=== PATIENT | male | born 1975 | race Caucasian/White ===

== ENCOUNTER 2021-06-18 05:21 | Inpatient (IN) | payer SELFPAY ==
[2021-06-18] VITALS (17 sets, daily range): BP systolic 105–147; BP diastolic 62–86
[~2021-06-18] VITALS: Ht 180.3 cm; Wt 89.5 kg
[2021-06-18] MEDS ORDERED: NITROGLYCERIN SUBLINGUAL 0.4 MG BOTTLE OF 25. SL PRN (05:30)
[2021-06-18] MEDS ORDERED: MORPHINE SULFATE 4 MG/ML INJ. IVP ONE ×2 (05:30→06:00)
[2021-06-18] MEDS ORDERED: HEPARIN for IV BOLUS 10,000 UNIT/10 ML VIAL. IV ONE (05:30)
--- NOTE | 2021-06-18 05:31 | EKG ---
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
[2021-06-18] MEDS ORDERED: ONDANSETRON PF 4 MG/2 ML VIAL. ONE (05:36)
--- NOTE | 2021-06-18 05:38 | PHYS DOC ---
General Adult EDM: Chief Complaint: CHEST PAIN HPI: HPI: Patient is a 45 year old male with history of smoking, family history of early NC (mother 50s) who presents with substernal chest pain for 3 hours. Started while getting ready for work. Has been unrelenting. Chest pressure substernal. Does not radiate. Associated with diaphoresis and shortness of breath. Never had similar pain. Prehospital EKG shows ST elevations anteriorly. Given 324 mg aspirin and 2 sublingual nitroglycerin prehospital which did not change his pain. Rates pain 10/10. Review of Systems: Review of Systems: Reports chest pain, diaphoresis, shortness of breath. Limited ROS due to acuity of medical condition Heart Score: C/O Chest Pain: Yes HEART Score for Chest Pain: HEART Score for Chest Pain Response (Comments) Value History Highly Suspicious [address] Depression 2 Age >45 - < 65 1 Risk Factors 1 or 2 Risk Factors 1 Total 6 Risk Factors: Risk Factors: DM, Current or recent (<one month) smoker, HTN, HLP, family history of CAD, obesity. Risk Scores: Score 0 - 3: 2.5% MACE over next 6 weeks - Discharge Home Score 4 - 6: 20.3% MACE over next 6 weeks - Admit for Clinical Observation Score 7 - 10: 72.7% MACE over next 6 weeks - Early Invasive Strategies Current Medications: Current Medications Medications (Trade) Dose Ordered Sig/Garrett Start Time Stop Time Status Last Admin Dose Admin Heparin Sodium (Porcine) (Heparin Sodium) 4,000 unit 1X ONCE 06/18/21 05:30 06/18/21 05:31 UNV Morphine Sulfate (Morphine Sulfate) 4 mg 1X ONCE 06/18/21 05:30 06/18/21 05:31 UNV Nitroglycerin (Nitrostat) 0.4 mg PRN Q5MIN PRN 06/18/21 05:30 UNV Physical Exam: PE: Constitutional: Diaphoretic and apparent distress. Clutching chest (positive Lima sign) HENT: Normocephalic, atraumatic, Eyes: PERRLA, EOMI, conjunctiva normal, no discharge. [] Neck: Normal range of motion, no tenderness, supple, no stridor. [] Cardiovascular:Heart rate regular rhythm, no murmur [] Lungs & Thorax: Bilateral breath sounds clear to auscultation [] Abdomen: Nontender Skin: Diaphoretic, no rash Extremities: No deformity, no edema. [] Neurologic: Alert and oriented X 3, normal motor function, normal sensory function, no focal deficits noted. [] EKG: EKG: Sinus rhythm. Rate approximately 75. ST elevation hyperacute T waves V2V5. Mild ST depressions inferiorly. Elevations and ST depressions were more marked on prehospital EKG. [] Radiology/Procedures: Radiology/Procedures: [] Course & Med Decision Making: Course & Med Decision Making Pertinent Labs and Imaging studies reviewed. (See chart for details) Patient 45-year-old male with history of smoking, family history of early NC who presents with chest pain and EKG concerning for anterior STEMI. Given aspirin 324 mg prehospital. No pain relief with sublingual nitroglycerin. Will repeat here and give IV morphine. 4000 units of IV heparin bolus ordered. Discussed with dough brake machine operator, Dr. Manrique and activated Metal Sorter upon arrival. He recommended holding on clopidogrel load. 0538 Total critical care time: 32 minutes [place] Disclaimer: Cary Disclaimer: This electronic medical record was generated, in whole or in part, using a voice recognition dictation system. Departure Departure Impression: Primary Impression: STEMI (ST elevation myocardial infarction) Disposition: ADMITTED INPATIENT Condition: CRITICAL IVORY HINES MD Jun 18, 2021 05:38
[2021-06-18 05:42] LABS: BASO # 0.1 x10^3/uL (0.0-0.2); BASO % 1 % (0-3); EOS # 0.5 x10^3/uL (0.0-0.7); EOS % 6 % (0-3); HEMATOCRIT 50.7 % (39.0-53.0); HEMOGLOBIN 17.2 g/dL (13.0-17.5); LYMPH # 2.2 x10^3/uL (1.0-4.8); LYMPH % 27 % (24-48); MEAN CORPUSCULAR HEMOGLOBIN 33 pg (25-35); MEAN CORPUSCULAR HGB CONC 34 g/dL (31-37); MEAN CORPUSCULAR VOLUME 98 fL (79-100); MONO # 0.7 x10^3/uL (0.0-1.1); MONO % 9 % (0-9); NEUT # 4.5 x10^3/uL (1.8-7.7); NEUT % 57 % (31-73); PLATELET COUNT 257 x10^3/uL (140-400); RED BLOOD COUNT 5.18 x10^6/uL (4.30-5.70); RED CELL DISTRIBUTION WIDTH 13.8 % (11.5-14.5); WHITE BLOOD COUNT 7.9 x10^3/uL (4.0-11.0)
[2021-06-18] MEDS ORDERED: LIDOCAINE 1% Multi-Dose 20 ML VIAL. ONE (05:53)
[2021-06-18] MEDS ORDERED: IODIXANOL 320 MG/ML 100 ML VIAL. ONE (05:53)
[2021-06-18] MEDS ORDERED: HEPARIN for ARTERIAL LINE 1,500 ML ONE (05:53)
[2021-06-18 05:56] LABS: CALCIUM 8.9 mg/dL (8.5-10.1); CREATININE 0.9 mg/dL (0.7-1.3); GFR 90.8; POTASSIUM 4.3 mmol/L (3.5-5.1)
[2021-06-18] MEDS ORDERED: MIDAZOLAM HCL/PF 2 MG/2 ML VIAL. ONE (05:57)
[2021-06-18] MEDS ORDERED: fentaNYL PF VIAL 100 MCG/2 ML VIAL ONE (05:57)
[2021-06-18] MEDS ORDERED: fentaNYL PF VIAL 100 MCG/2 ML VIAL IV ONE (06:00)
[2021-06-18] MEDS ORDERED: IODIXANOL 320 MG/ML 100 ML VIAL. IART ONE (06:00)
[2021-06-18] MEDS ORDERED: LIDOCAINE 1% Multi-Dose 20 ML VIAL. INJ ONE (06:00)
[2021-06-18] MEDS ORDERED: MIDAZOLAM HCL/PF 2 MG/2 ML VIAL. IV ONE (06:00)
[2021-06-18] MEDS ORDERED: ONDANSETRON PF 4 MG/2 ML VIAL. IVP ONE (06:00)
[2021-06-18 06:02] LABS: ALBUMIN 3.7 g/dL (3.4-5.0); TOTAL BILIRUBIN 0.3 mg/dL (0.2-1.0); TOTAL PROTEIN 7.3 g/dL (6.4-8.2)
[2021-06-18] MEDS ORDERED: BIVALIRUDIN 250 MG VIAL. IV ONE ×2 (06:19→06:45)
[2021-06-18] MEDS ORDERED: CONTRAST GIVEN. MC PRN (06:30)
[2021-06-18] MEDS ORDERED: CLOPIDOGREL BISULFATE 75 MG TABLET PO ONE (07:00)
[2021-06-18] MEDS ORDERED: ASPIRIN 325 MG TABLET PO ONE (07:00)
[2021-06-18] MEDS ORDERED: 0.9 % SODIUM CHLORIDE 10 ML DISP.SYRIN. IV PRN (07:15)
[2021-06-18] MEDS ORDERED: IV NORMAL SALINE 1000ML BAG 1,000 ML IV SCH (07:15)
--- NOTE | 2021-06-18 08:15 | PDOC2 ---
CONSULT Date of Consult Date of Consult DATE: 06/18/21 TIME: 08:11 Reason for Consult Reason for Consult: Chest pain, ST elevated myocardial infarction. Referring Physician Referring Physician: Dr. Garcia Identification/Chief Complaint Chief Complaint Chest pain Source Source: Chart review, Patient History of Present Illness Reason for Visit: The patient is a 45-year-old male with a history of 3 hours of chest pain associated with diaphoresis and shortness of breath. Paramedics were called and initial EKG is consistent with a ST elevated myocardial infarction. Patient has been treated with aspirin and heparin. He has received morphine for pain. His pain has decreased but is still present. Initial lab is pending. He has no history of coronary disease, congestive heart failure or arrhythmias. He does calabrese ve a personal history of tobacco abuse and a family history of early coronary artery disease. Past Medical History Cardiovascular: HTN Past Surgical History Past Surgical History: No pertinent history Family History Family History: Coronary Artery Disease, Heart Disease Social History 1 pack per day Current Problem List Problem List Problems Medical Problems: (1) STEMI (ST elevation myocardial infarction) Status: Acute Current Medications Current Medications Current Medications Nitroglycerin (Nitrostat) 0.4 mg PRN Q5MIN PRN SL CHEST PAIN Last administered on 06/18/21at 05:30; Start 06/18/21 at 05:30 Heparin Sodium (Porcine) (Heparin Sodium) 4,000 unit 1X ONCE IV Last administered on 06/18/21at 05:32; Start 06/18/21 at 05:30; Stop 06/18/21 at 05:40; Status DC Morphine Sulfate (Morphine Sulfate) 4 mg 1X ONCE IVP Last administered on 06/18/21at 05:33; Start 06/18/21 at 05:30; Stop 06/18/21 at 05:40; Status DC Ondansetron HCl (Zofran) 4 mg STK-MED ONCE .ROUTE ; Start 06/18/21 at 05:36; Stop 06/18/21 at 05:37; Status DC Morphine Sulfate (Morphine Sulfate) 4 mg 1X ONCE IVP Last administered on 06/18/21at 05:49; Start 06/18/21 at 06:00; Stop 06/18/21 at 06:01; Status DC Lidocaine HCl (Lidocaine 1% 20ml Vial) 20 ml STK-MED ONCE .ROUTE ; Start 06/18/21 at 05:53; Stop 06/18/21 at 05:53; Status DC Heparin Sodium/ Sodium Chloride 1,500 ml @ As Directed STK-MED ONCE .ROUTE ; Start 06/18/21 at 05:53; Stop 06/18/21 at 05:53; Status DC Iodixanol (Visipaque 320) 100 ml STK-MED ONCE .ROUTE ; Start 06/18/21 at 05:53; Stop 06/18/21 at 05:54; Status DC Fentanyl Citrate (Fentanyl 2ml Vial) 100 mcg STK-MED ONCE .ROUTE ; Start 06/18/21 at 05:57; Stop 06/18/21 at 05:57; Status DC Midazolam HCl (Versed) 2 mg STK-MED ONCE .ROUTE ; Start 06/18/21 at 05:57; Stop 06/18/21 at 05:57; Status DC Ondansetron HCl (Zofran) 4 mg 1X ONCE IVP ; Start 06/18/21 at 06:00; Stop 06/18/21 at 06:02; Status DC Bivalirudin (Angiomax) 250 mg STK-MED ONCE IV ; Start 06/18/21 at 06:19; Stop 06/18/21 at 06:19; Status DC Heparin Sodium/ Sodium Chloride (HEPARIN for ARTERIAL LINE FLUSH) 1,000 unit 1X ONCE IART Last administered on 06/18/21at 06:00; Start 06/18/21 at 06:00; Stop 06/18/21 at 06:24; Status DC Heparin Sodium/ Sodium Chloride (HEPARIN for ARTERIAL LINE FLUSH) 1,000 unit 1X ONCE IART Last administered on 06/18/21at 06:00; Start 06/18/21 at 06:00; Stop 06/18/21 at 06:24; Status DC Midazolam HCl (Versed) 2 mg 1X ONCE IV Last administered on 06/18/21at 06:12; Start 06/18/21 at 06:00; Stop 06/18/21 at 06:24; Status DC Fentanyl Citrate (Fentanyl 2ml Vial) 100 mcg 1X ONCE IV ; Start 06/18/21 at 06:00; Stop 06/18/21 at 06:24; Status DC Iodixanol (Visipaque 320) 100 ml 1X ONCE IART Last administered on 06/18/21at 06:51; Start 06/18/21 at 06:00; Stop 06/18/21 at 06:24; Status DC Lidocaine HCl (Lidocaine 1% 20ml Vial) 20 ml 1X ONCE INJ Last administered on 06/18/21at 06:18; Start 06/18/21 at 06:00; Stop 06/18/21 at 06:24; Status DC Info (CONTRAST GIVEN -- Rx MONITORING) 1 each PRN DAILY PRN MC SEE COMMENTS; Start 06/18/21 at 06:30; Stop 06/20/21 at 06:29 Bivalirudin (Angiomax) 250 mg 1X ONCE IV Last administered on 06/18/21at 06:30; Start 06/18/21 at 06:45; Stop 06/18/21 at 06:46; Status DC Dopamine HCl/ Dextrose 250 ml @ As Directed STK-MED ONCE IV ; Start 06/18/21 at 06:37; Stop 06/18/21 at 06:37; Status DC Dopamine HCl/ Dextrose 250 ml @ 34.913 mls/ hr 1X ONCE IV ; Start 06/18/21 at 06:45; Stop 06/18/21 at 13:54 Clopidogrel Bisulfate (Plavix) 600 mg 1X ONCE PO Last administered on 06/18/21at 07:15; Start 06/18/21 at 07:00; Stop 06/18/21 at 07:03; Status DC Aspirin (Sasha Aspirin) 325 mg 1X ONCE PO Last administered on 06/18/21at 07:15; Start 06/18/21 at 07:00; Stop 06/18/21 at 07:03; Status DC Sodium Chloride (Normal Saline Flush) 3 ml QSHIFT PRN IV AFTER MEDS AND BLOOD DRAWS; Start 06/18/21 at 07:15 Sodium Chloride 1,000 ml @ 60 mls/hr [id number] IV ; Start 06/18/21 at 07:15; Stop 06/18/21 at 13:14 Aspirin (Ecotrin) 325 mg DAILYWBKFT PO ; Start 06/19/21 at 08:00 Clopidogrel Bisulfate (Plavix) 75 mg DAILYWBKFT PO ; Start 06/19/21 at 08:00 Allergies Allergies: Coded Allergies: No Known Drug Allergies (Unverified , 06/18/21) ROS Respiratory: YES: Shortness of breath Cardiovascular: yes Chest Pain Physical Exam General: moderate distress HEENT: Atraumatic Lungs: Clear to auscultation Heart: Other (Regular rhythm) Abdomen: Normal bowel sounds Vitals VITALS Vital Signs Date Time Temp Pulse Resp B/P (MAP) Pulse Ox O2 Delivery O2 Flow Rate FiO2 06/18/21 07:20 72 17 95 Room Air 06/18/21 05:58 144/90 (108) 06/18/21 05:21 98.0 98.0 Labs Labs Laboratory Tests Test 06/18/21 05:30 White Blood Count 7.9 x10^3/uL (4.0-11.0) Red Blood Count 5.18 x10^6/uL (4.30-5.70) Hemoglobin 17.2 g/dL (13.0-17.5) Hematocrit 50.7 % (39.0-53.0) Mean Corpuscular Volume 98 fL (79-100) Mean Corpuscular Hemoglobin 33 pg (25-35) Mean Corpuscular Hemoglobin Concent 34 g/dL (31-37) Red Cell Distribution Width 13.8 % (11.5-14.5) Platelet Count 257 x10^3/uL (140-400) Neutrophils (%) (Auto) 57 % (31-73) Lymphocytes (%) (Auto) 27 % (24-48) Monocytes (%) (Auto) 9 % (0-9) Eosinophils (%) (Auto) 6 % (0-3) Basophils (%) (Auto) 1 % (0-3) Neutrophils # (Auto) 4.5 x10^3/uL (1.8-7.7) Lymphocytes # (Auto) 2.2 x10^3/uL (1.0-4.8) Monocytes # (Auto) 0.7 x10^3/uL (0.0-1.1) Eosinophils # (Auto) 0.5 x10^3/uL (0.0-0.7) Basophils # (Auto) 0.1 x10^3/uL (0.0-0.2) Sodium Level 138 mmol/L (136-145) Potassium Level 4.3 mmol/L (3.5-5.1) Chloride Level 103 mmol/L (98-107) Carbon Dioxide Level 25 mmol/L (21-32) Anion Gap 10 (6-14) Blood Urea Nitrogen 17 mg/dL (8-26) Creatinine 0.9 mg/dL (0.7-1.3) Estimated GFR (Cockcroft-Gault) 90.8 BUN/Creatinine Ratio 19 (6-20) Glucose Level 128 mg/dL (70-99) Calcium Level 8.9 mg/dL (8.5-10.1) Total Bilirubin 0.3 mg/dL (0.2-1.0) Aspartate Amino Transf (AST/SGOT) 21 U/L (15-37) Alanine Aminotransferase (ALT/SGPT) 30 U/L (16-63) Alkaline Phosphatase 107 U/L (46-116) Troponin I High Sensitivity 37 ng/L (4-75) Total Protein 7.3 g/dL (6.4-8.2) Albumin 3.7 g/dL (3.4-5.0) Albumin/Globulin Ratio 1.0 (1.0-1.7) Laboratory Tests Test 06/18/21 05:30 White Blood Count 7.9 x10^3/uL (4.0-11.0) Red Blood Count 5.18 x10^6/uL (4.30-5.70) Hemoglobin 17.2 g/dL (13.0-17.5) Hematocrit 50.7 % (39.0-53.0) Mean Corpuscular Volume 98 fL (79-100) Mean Corpuscular Hemoglobin 33 pg (25-35) Mean Corpuscular Hemoglobin Concent 34 g/dL (31-37) Red Cell Distribution Width 13.8 % (11.5-14.5) Platelet Count 257 x10^3/uL (140-400) Neutrophils (%) (Auto) 57 % (31-73) Lymphocytes (%) (Auto) 27 % (24-48) Monocytes (%) (Auto) 9 % (0-9) Eosinophils (%) (Auto) 6 % (0-3) Basophils (%) (Auto) 1 % (0-3) Neutrophils # (Auto) 4.5 x10^3/uL (1.8-7.7) Lymphocytes # (Auto) 2.2 x10^3/uL (1.0-4.8) Monocytes # (Auto) 0.7 x10^3/uL (0.0-1.1) Eosinophils # (Auto) 0.5 x10^3/uL (0.0-0.7) Basophils # (Auto) 0.1 x10^3/uL (0.0-0.2) Sodium Level 138 mmol/L (136-145) Potassium Level 4.3 mmol/L (3.5-5.1) Chloride Level 103 mmol/L (98-107) Carbon Dioxide Level 25 mmol/L (21-32) Anion Gap 10 (6-14) Blood Urea Nitrogen 17 mg/dL (8-26) Creatinine 0.9 mg/dL (0.7-1.3) Estimated GFR (Cockcroft-Gault) 90.8 BUN/Creatinine Ratio 19 (6-20) Glucose Level 128 mg/dL (70-99) Calcium Level 8.9 mg/dL (8.5-10.1) Total Bilirubin 0.3 mg/dL (0.2-1.0) Aspartate Amino Transf (AST/SGOT) 21 U/L (15-37) Alanine Aminotransferase (ALT/SGPT) 30 U/L (16-63) Alkaline Phosphatase 107 U/L (46-116) Troponin I High Sensitivity 37 ng/L (4-75) Total Protein 7.3 g/dL (6.4-8.2) Albumin 3.7 g/dL (3.4-5.0) Albumin/Globulin Ratio 1.0 (1.0-1.7) Assessment/Plan Assessment/Plan 1. Chest pain. Presentation and EKG consistent with an ST elevated myocardial infarction in the anterior leads. Patient has been treated with heparin and a spirin as well as morphine for pain. Risks and benefits of emergency catheterization and possible intervention were discussed with the patient. Patient has given consent to proceed. 2. Tobacco abuse. 3. Unknown cholesterol level. Will check morning lab. CORINNA COE MD Jun 18, 2021 08:15
--- NOTE | 2021-06-18 08:17 | PDOC1 ---
History and Physical Date of Service: DOS: DATE: 06/18/21 TIME: 08:14 Chief Complaint: Chief Complain: chest pain History of Present Illness: HPI: 45-year-old male with past medical history of hypertension and smoking and early LA in his mother who presents with substernal chest pain for the past 3 hours. Pain does not radiate and associated with diaphoresis and shortness of breath. Never had pain like this before. Paramedics were called and his initial EKG was consistent with NSTEMI. In the anterior leads. Patient was given aspirin and sublingual nitroglycerin which did not help with his pain. Pain currently was 10 out of 10 at the time. Patient was taken to [facility] and did receive a stent in the LAD which showed a mid occlusion. Patient seen after the [facility] and his pain has improved. There was no other lesion seen on angiogram. Past Medical/Surgical History: PMH/PSH: Hypertension Allergies: Allergies: Coded Allergies: No Known Drug Allergies (Unverified , 06/18/21) Family History: Family History: Heart disease and LA in the mother Social History: Social History: History of tobacco use 1 pack/day. Current Medications: Current Medications Current Medications Nitroglycerin (Nitrostat) 0.4 mg PRN Q5MIN PRN SL CHEST PAIN Last administered on 06/18/21at 05:30; Start 06/18/21 at 05:30 Heparin Sodium (Porcine) (Heparin Sodium) 4,000 unit 1X ONCE IV Last administered on 06/18/21at 05:32; Start 06/18/21 at 05:30; Stop 06/18/21 at 05:40; Status DC Morphine Sulfate (Morphine Sulfate) 4 mg 1X ONCE IVP Last administered on 06/18/21at 05:33; Start 06/18/21 at 05:30; Stop 06/18/21 at 05:40; Status DC Ondansetron HCl (Zofran) 4 mg STK-MED ONCE .ROUTE ; Start 06/18/21 at 05:36; Stop 06/18/21 at 05:37; Status DC Morphine Sulfate (Morphine Sulfate) 4 mg 1X ONCE IVP Last administered on 06/18/21at 05:49; Start 06/18/21 at 06:00; Stop 06/18/21 at 06:01; Status DC Lidocaine HCl (Lidocaine 1% 20ml Vial) 20 ml STK-MED ONCE .ROUTE ; Start 06/18/21 at 05:53; Stop 06/18/21 at 05:53; Status DC Heparin Sodium/ Sodium Chloride 1,500 ml @ As Directed STK-MED ONCE .ROUTE ; Start 06/18/21 at 05:53; Stop 06/18/21 at 05:53; Status DC Iodixanol (Visipaque 320) 100 ml STK-MED ONCE .ROUTE ; Start 06/18/21 at 05:53; Stop 06/18/21 at 05:54; Status DC Fentanyl Citrate (Fentanyl 2ml Vial) 100 mcg STK-MED ONCE .ROUTE ; Start at 05:57; Stop 06/18/21 at 05:57; Status DC Midazolam HCl (Versed) 2 mg STK-MED ONCE .ROUTE ; Start 06/18/21 at 05:57; St op 06/18/21 at 05:57; Status DC Ondansetron HCl (Zofran) 4 mg 1X ONCE IVP ; Start 06/18/21 at 06:00; Stop 06/18/21 at 06:02; Status DC Bivalirudin (Angiomax) 250 mg STK-MED ONCE IV ; Start 06/18/21 at 06:19; Stop 06/18/21 at 06:19; Status DC Heparin Sodium/ Sodium Chloride (HEPARIN for ARTERIAL LINE FLUSH) 1,000 unit 1X ONCE IART Last administered on 06/18/21at 06:00; Start 06/18/21 at 06:00; Stop 06/18/21 at 06:24; Status DC Heparin Sodium/ Sodium Chloride (HEPARIN for ARTERIAL LINE FLUSH) 1,000 unit 1X ONCE IART Last administered on 06/18/21at 06:00; Start 06/18/21 at 06:00; Stop 06/18/21 at 06:24; Status DC Midazolam HCl (Versed) 2 mg 1X ONCE IV Last administered on 06/18/21at 06:12; Start 06/18/21 at 06:00; Stop 06/18/21 at 06:24; Status DC Fentanyl Citrate (Fentanyl 2ml Vial) 100 mcg 1X ONCE IV ; Start 06/18/21 at 06:00; Stop 06/18/21 at 06:24; Status DC Iodixanol (Visipaque 320) 100 ml 1X ONCE IART Last administered on 06/18/21at 06:51; Start 06/18/21 at 06:00; Stop 06/18/21 at 06:24; Status DC Lidocaine HCl (Lidocaine 1% 20ml Vial) 20 ml 1X ONCE INJ Last administered on 06/18/21at 06:18; Start 06/18/21 at 06:00; Stop 06/18/21 at 06:24; Status DC Info (CONTRAST GIVEN -- Rx MONITORING) 1 each PRN DAILY PRN MC SEE COMMENTS; Start 06/18/21 at 06:30; Stop 06/20/21 at 06:29 Bivalirudin (Angiomax) 250 mg 1X ONCE IV Last administered on 06/18/21at 06:30; Start 06/18/21 at 06:45; Stop 06/18/21 at 06:46; Status DC Dopamine HCl/ Dextrose 250 ml @ As Directed STK-MED ONCE IV ; Start 06/18/21 at 06:37; Stop 06/18/21 at 06:37; Status DC Dopamine HCl/ Dextrose 250 ml @ 34.913 mls/ hr 1X ONCE IV ; Start 06/18/21 at 06:45; Stop 06/18/21 at 13:54 Clopidogrel Bisulfate (Plavix) 600 mg 1X ONCE PO Last administered on at 07:15; Start 06/18/21 at 07:00; Stop 06/18/21 at 07:03; Status DC Aspirin (Sasha Aspirin) 325 mg 1X ONCE PO Last administered on 06/18/21at 07:15; Start 06/18/21 at 07:00; Stop 06/18/21 at 07:03; Status DC Sodium Chloride (Normal Saline Flush) 3 ml QSHIFT PRN IV AFTER MEDS AND BLOOD DRAWS; Start 06/18/21 at 07:15 Sodium Chloride 1,000 ml @ 60 mls/hr [id number] IV ; Start 06/18/21 at 07:15; Stop 06/18/21 at 13:14 Aspirin (Ecotrin) 325 mg DAILYWBKFT PO ; Start 06/19/21 at 08:00 Clopidogrel Bisulfate (Plavix) 75 mg DAILYWBKFT PO ; Start 06/19/21 at 08:00 ROS: Review of Systems Review of System REVIEW OF SYSTEMS: GENERAL: Denies weakness SKIN: No bruising, hair changes or rashes. EYES: No blurred, double or loss of vision. NOSE AND THROAT: No history of nosebleeds, hoarseness or sore throat. HEART: Positive for chest pain LUNGS: Denies cough, hemoptysis, wheezing or shortness of breath. GASTROINTESTINAL: Denies changes in appetite, nausea, vomiting, diarrhea or constipation. GENITOURINARY: No history of frequency, urgency, hesitancy or nocturia. NEUROLOGIC: Denies history of numbness, tingling, or tremor. PSYCHIATRIC: No history of panic, anxiety or depression. ENDOCRINE: No history of heat or cold intolerance, polyuria or polydipsia. EXTREMITIES: Denies joint pain, pain on walking or stiffness. Physical Exam: Vital Signs: Vital Signs Date Time Temp Pulse Resp B/P (MAP) Pulse Ox O2 Delivery O2 Flow Rate FiO2 06/18/21 07:20 72 17 95 Room Air 06/18/21 05:58 144/90 (108) 06/18/21 05:21 98.0 98.0 Physcial Exam: General: Well developed, well nourished, no acute distress, well appearing HEENT: Pupils equally round and reactive to light, EOMI, no discharge, normal conjunctiva Neck: Supple, no nuchal rigidity, no JVD, trachea midline, no tenderness Cardiac: RRR, no murmurs, no gallops, no rubs Chest/Lungs: CTAB, no wheeze, no rhonchi, no crackles Abdomen: soft, non-distended, no guarding, no peritoneal signs, non-tender Back: No tenderness Extremities: Access site with no bleeding or masses. No palpable thrill. No active bleeding. Neuro: Alert and oriented x 4, no focal deficits, normal speech Labs: Labs: Laboratory Tests Test 06/18/21 05:30 White Blood Count 7.9 x10^3/uL (4.0-11.0) Red Blood Count 5.18 x10^6/uL (4.30-5.70) Hemoglobin 17.2 g/dL (13.0-17.5) Hematocrit 50.7 % (39.0-53.0) Mean Corpuscular Volume 98 fL (79-100) Mean Corpuscular Hemoglobin 33 pg (25-35) Mean Corpuscular Hemoglobin Concent 34 g/dL (31-37) Red Cell Distribution Width 13.8 % (11.5-14.5) Platelet Count 257 x10^3/uL (140-400) Neutrophils (%) (Auto) 57 % (31-73) Lymphocytes (%) (Auto) 27 % (24-48) Monocytes (%) (Auto) 9 % (0-9) Eosinophils (%) (Auto) 6 % (0-3) Basophils (%) (Auto) 1 % (0-3) Neutrophils # (Auto) 4.5 x10^3/uL (1.8-7.7) Lymphocytes # (Auto) 2.2 x10^3/uL (1.0-4.8) Monocytes # (Auto) 0.7 x10^3/uL (0.0-1.1) Eosinophils # (Auto) 0.5 x10^3/uL (0.0-0.7) Basophils # (Auto) 0.1 x10^3/uL (0.0-0.2) Sodium Level 138 mmol/L (136-145) Potassium Level 4.3 mmol/L (3.5-5.1) Chloride Level 103 mmol/L (98-107) Carbon Dioxide Level 25 mmol/L (21-32) Anion Gap 10 (6-14) Blood Urea Nitrogen 17 mg/dL (8-26) Creatinine 0.9 mg/dL (0.7-1.3) Estimated GFR (Cockcroft-Gault) 90.8 BUN/Creatinine Ratio 19 (6-20) Glucose Level 128 mg/dL (70-99) Calcium Level 8.9 mg/dL (8.5-10.1) Total Bilirubin 0.3 mg/dL (0.2-1.0) Aspartate Amino Transf (AST/SGOT) 21 U/L (15-37) Alanine Aminotransferase (ALT/SGPT) 30 U/L (16-63) Alkaline Phosphatase 107 U/L (46-116) Troponin I High Sensitivity 37 ng/L (4-75) Total Protein 7.3 g/dL (6.4-8.2) Albumin 3.7 g/dL (3.4-5.0) Albumin/Globulin Ratio 1.0 (1.0-1.7) Laboratory Tests Test 06/18/21 05:30 White Blood Count 7.9 x10^3/uL (4.0-11.0) Red Blood Count 5.18 x10^6/uL (4.30-5.70) Hemoglobin 17.2 g/dL (13.0-17.5) Hematocrit 50.7 % (39.0-53.0) Mean Corpuscular Volume 98 fL (79-100) Mean Corpuscular Hemoglobin 33 pg (25-35) Mean Corpuscular Hemoglobin Concent 34 g/dL (31-37) Red Cell Distribution Width 13.8 % (11.5-14.5) Platelet Count 257 x10^3/uL (140-400) Neutrophils (%) (Auto) 57 % (31-73) Lymphocytes (%) (Auto) 27 % (24-48) Monocytes (%) (Auto) 9 % (0-9) Eosinophils (%) (Auto) 6 % (0-3) Basophils (%) (Auto) 1 % (0-3) Neutrophils # (Auto) 4.5 x10^3/uL (1.8-7.7) Lymphocytes # (Auto) 2.2 x10^3/uL (1.0-4.8) Monocytes # (Auto) 0.7 x10^3/uL (0.0-1.1) Eosinophils # (Auto) 0.5 x10^3/uL (0.0-0.7) Basophils # (Auto) 0.1 x10^3/uL (0.0-0.2) Sodium Level 138 mmol/L (136-145) Potassium Level 4.3 mmol/L (3.5-5.1) Chloride Level 103 mmol/L (98-107) Carbon Dioxide Level 25 mmol/L (21-32) Anion Gap 10 (6-14) Blood Urea Nitrogen 17 mg/dL (8-26) Creatinine 0.9 mg/dL (0.7-1.3) Estimated GFR (Cockcroft-Gault) 90.8 BUN/Creatinine Ratio 19 (6-20) Glucose Level 128 mg/dL (70-99) Calcium Level 8.9 mg/dL (8.5-10.1) Total Bilirubin 0.3 mg/dL (0.2-1.0) Aspartate Amino Transf (AST/SGOT) 21 U/L (15-37) Alanine Aminotransferase (ALT/SGPT) 30 U/L (16-63) Alkaline Phosphatase 107 U/L (46-116) Troponin I High Sensitivity 37 ng/L (4-75) Total Protein 7.3 g/dL (6.4-8.2) Albumin 3.7 g/dL (3.4-5.0) Albumin/Globulin Ratio 1.0 (1.0-1.7) Images: Images Left heart cath 06/18/2021 Hemodynamics. Aortic root pressure of 128/78. Coronaries. Left main. The left main had no lesions. Left anterior descending. The LAD was a moderate to moderately large vessel with a mid occlusion. Left circumflex. The left circumflex a moderate size vessel with no lesions. Right coronary artery. The right coronary was a moderate size vessel with no lesions. <Conclusion> Occlusion of the mid LAD vessel. Successful stenting of the LAD with 0% residual. No angiographic evidence of significant lesions in the left circumflex or RCA. Assessment/Plan Assessment/Plan Typical chest pain consistent with STEMI status post stent to the LAD on 06/18/2021 Continue ICU care Continue aspirin, Plavix Pending lipid panel Continue dopamine drip and titrate per inpatient blood pressure goals Heparin for DVT prophylaxis Protonix GI prophylaxis ADA diet CODE STATUS full Discussed with RN and SW Disposition inpatient management as above DPOA: A total of 40 minutes of critical care time was spent in reviewing chart, labs, and images. Discussed with RN and SW. Justifications for Admission Other Justification KIKO TAO MD Jun 18, 2021 08:17
--- NOTE | 2021-06-18 08:29 | CARD ---
MR#: [id number] Date of Study: 06/18/2021 Ordering Physician: IVORY HINES, Referring Physician: IVORY HINES, Tech: Yohana Luis RT(R) APPROVED REPORT Procedure Selective coronary angiogram Stent placement to the mid LAD. The patient is a 45-year-old male who presented to the emergency room with 3 hours of chest pain and increasing shortness of breath. EKG was consistent with an anterior ST elevated myocardial infarctio n. The patient was treated with aspirin, heparin and morphine for pain control. Risks and benefits of emergency catheterization and probable intervention were discussed with the patient. He gave info rmed consent to proceed. After consent was obtained the patient was brought emergently to the catheterization lab. The area t he right femoral artery was prepared in the usual manner with Betadine, sterile draping and local ane sthetic. An 18-gauge needle was used to enter the right femoral artery, a wire placed a 6 Georgian she ath placed over the wire. A 6 Georgian Robert diagnostic right catheter and then a JR4 diagnostic ca theter were used to engage the right coronary artery and sequential injections of various views were obtained. 3.5 extra-support guide catheter was used to engage the left system. Sequential injection s were obtained. Patient had a mid LAD occlusion. Angiomax as per protocol was administered. A PT choice wire was used to cross the lesion. Initial d ilatation was with a 2.75 x 20 Euphora balloon with 1 inflation at 8 sandy for 15 seconds. The balloon was then removed and the vessel stented with a 3.0 x 22 Resolute Van Voorhis drug-eluting stent. Stent was deployed with 1 inflation at 16 sandy for 16 seconds. Residual lesion was 0%. The wire and guiding s ystem were removed from the patient. Injection of the sheath showed normal placement. The sheath wa s removed and sealed with an Angio-Seal product. The patient was then brought to the intensive care unit. There were no immediate complications. Hemodynamics. Aortic root pressure of 128/78. Coronaries. Left main. The left main had no lesions. Left anterior descending. The LAD was a moderate to moderately large vessel with a mid occlusion. Left circumflex. The left circumflex a moderate size vessel with no lesions. Right coronary artery. The right coronary was a moderate size vessel with no lesions. <Conclusion> Occlusion of the mid LAD vessel. Successful stenting of the LAD with 0% residual. No angiographic evidence of significant lesions in the left circumflex or RCA. Fluoroscopy time of 9.0 minutes. Contrast of 146 mL. Moderate sedation of 60 minutes. Estimated blood loss of 20 cc. All protective henderson and barriers were used during the procedure. The patient was independently monitored during the procedure. Signed by : Mikhail Manrique MD Electronically Approved : 06/18/2021 08:29:18
--- NOTE | 2021-06-18 09:54 | NUR ---
SS following for discharge planning. SS reviewed pt chart and discussed with pt RN. Pt is from home with spouse and is currently on room air. Cardiology following. Pt had heart cath on 06/18/2021. Self pay. Med Assist following. SS will continue to follow for discharge planning.
--- NOTE | 2021-06-18 10:23 | CARD ---
MR#: [id number] Date of Study: 06/18/2021 Ordering Physician: CORINNA COE, Referring Physician: CORINNA COE, Tech: Sharon Mckeon [facility] APPROVED REPORT EXAM: Two-dimensional and M-mode echocardiogram with Doppler and color Doppler. Other Information Quality : AverageHR: 78bpm Rhythm : NSR INDICATION Non STEMI RISK FACTORS Hypertension 2D DIMENSIONS RVDd3.9 (2.9-3.5cm)Left Atrium(2D)2.1 (1.6-4.0cm) IVSd1.0 (0.7-1.1cm)Aortic Root(2D)3.2 (2.0-3.7cm) LVDd4.5 (3.9-5.9cm)LVOT Diameter2.5 (1.8-2.4cm) PWd0.8 (0.7-1.1cm)LVDs3.5 (2.5-4.0cm) FS (%) 23.1 %SV43.8 ml LVEF(%)46.4 (>50%) Aortic Valve AoV Peak Boo.120.1cm/sAoV VTI24.2cm AO Peak GR.5.8mmHgAO Mean GR.3mmHg Mitral Valve MV E Exkdpdwk07.3cm/sMV DECEL [id number] TDI Lateral E' P. V9.07cm/sMedial E' P. V9.27cm/s E/Lateral E'8.0E/Medial E'7.8 LEFT VENTRICLE The left ventricle is normal size. There is normal left ventricular wall thickness. The ejection frac tion is moderately impaired. Estimated ejection fraction 30-35%. The distal 1/2 of the LV is akinetic consistent with recent LAD territory infarct. Transmitral Doppler flow pattern is Grade II-pseudonor mal filling dynamics. RIGHT VENTRICLE The right ventricle is normal size. There is normal right ventricular wall thickness. The right ventr icular systolic function is normal. ATRIA The left atrium size is normal. The right atrium size is normal. The interatrial septum is intact wit h no evidence for an atrial septal defect or patent foramen ovale as noted on 2-D or Doppler imaging. AORTIC VALVE The aortic valve is normal in structure and function. Doppler and Color Flow revealed no significant aortic regurgitation. There is no significant aortic valvular stenosis. MITRAL VALVE The mitral valve is normal in structure and function. There is no evidence of mitral valve prolapse. There is no mitral valve stenosis. Doppler and Color-flow revealed mild mitral regurgitation. TRICUSPID VALVE The tricuspid valve is normal in structure and function. Doppler and Color Flow revealed trace tricus pid regurgitation. Estimated PAP 15 mmHg. There is no tricuspid valve stenosis. PULMONIC VALVE Doppler and Color Flow revealed no pulmonic valvular regurgitation. There is no pulmonic valvular june nosis. GREAT VESSELS The aortic root is normal in size. The ascending aorta is normal in size. The IVC is normal in size a nd collapses >50% with inspiration. PERICARDIAL EFFUSION There is no evidence of significant pericardial effusion. Critical Notification Critical Value: No <Conclusion> The LV systolic function is severely impaired. Estimated ejection fraction 30-35%. The distal 1/2 of the LV is akinetic consistent with recent LAD territory infarct. Technically difficult study. Signed by : Phil Stahl, Electronically Approved : 06/18/2021 10:22:57
[2021-06-18] MEDS ORDERED: PANT20TA2 PO ×2 (10:29→15:58)
[2021-06-18] MEDS ORDERED: VENL150C6 PO (15:58)
[2021-06-18] MEDS ORDERED: MORPHINE SULFATE 2 MG/ML INJ. IVP PRN (19:15)
[2021-06-19] VITALS (14 sets, daily range): BP systolic 97–111; BP diastolic 62–77
[2021-06-19 03:11] LABS: CALCIUM 8.3 mg/dL (8.5-10.1); CREATININE 0.9 mg/dL (0.7-1.3); GFR 90.8; POTASSIUM 4.2 mmol/L (3.5-5.1)
[2021-06-19 03:15] LABS: BASO % 0 % (0-3); EOS # 0.4 x10^3/uL (0.0-0.7); EOS % 4 % (0-3); HEMATOCRIT 47.7 % (39.0-53.0); HEMOGLOBIN 16.7 g/dL (13.0-17.5); LYMPH # 1.7 x10^3/uL (1.0-4.8); LYMPH % 18 % (24-48); MEAN CORPUSCULAR HEMOGLOBIN 34 pg (25-35); MEAN CORPUSCULAR HGB CONC 35 g/dL (31-37); MEAN CORPUSCULAR VOLUME 98 fL (79-100); MONO # 0.7 x10^3/uL (0.0-1.1); MONO % 7 % (0-9); NEUT # 6.8 x10^3/uL (1.8-7.7); NEUT % 70 % (31-73); PLATELET COUNT 220 x10^3/uL (140-400); RED CELL DISTRIBUTION WIDTH 13.8 % (11.5-14.5); WHITE BLOOD COUNT 9.7 x10^3/uL (4.0-11.0)
[2021-06-19 03:18] LABS: MAGNESIUM 2.1 mg/dL (1.8-2.4)
[2021-06-19 03:21] LABS: CHOLESTEROL/HDL RATIO 4.2
[2021-06-19] MEDS: CLOPIDOGREL BISULFATE 75 MG TABLET PO SCH (08:00)
[2021-06-19] MEDS: ASPIRIN ENTERIC COATED 325 MG TABLET.DR. PO SCH (08:00)
--- NOTE | 2021-06-19 13:09 | PDOC ---
CARDIO Progress Notes Date and Time Date of Service 06/19/2021 Time of Evaluation 1200 Subjective Subjective: No Chest Pain, No shortness of breath, No Palpitations Vitals Vitals Vital Signs Date Time Temp Pulse Resp B/P (MAP) Pulse Ox O2 Delivery O2 Flow Rate FiO2 06/19/21 11:04 89 17 107/66 (80) 98 Room Air 06/19/21 11:00 98.5 98.5 Weight Weight [ ] Input and Output Intake and Output Intake and Output 06/19/21 07:00 Intake Total 500 ml Output Total 0 ml Balance 500 ml Intake Oral 500 ml Output Urine Total 0 ml # Voids 2 Laboratory Labs Laboratory Tests Test 06/18/21 18:00 06/19/21 02:45 Troponin I High Sensitivity 50816 ng/L (4-75) White Blood Count 9.7 x10^3/uL (4.0-11.0) Red Blood Count 4.90 x10^6/uL (4.30-5.70) Hemoglobin 16.7 g/dL (13.0-17.5) Hematocrit 47.7 % (39.0-53.0) Mean Corpuscular Volume 98 fL (79-100) Mean Corpuscular Hemoglobin 34 pg (25-35) Mean Corpuscular Hemoglobin Concent 35 g/dL (31-37) Red Cell Distribution Width 13.8 % (11.5-14.5) Platelet Count 220 x10^3/uL (140-400) Neutrophils (%) (Auto) 70 % (31-73) Lymphocytes (%) (Auto) 18 % (24-48) Monocytes (%) (Auto) 7 % (0-9) Eosinophils (%) (Auto) 4 % (0-3) Basophils (%) (Auto) 0 % (0-3) Neutrophils # (Auto) 6.8 x10^3/uL (1.8-7.7) Lymphocytes # (Auto) 1.7 x10^3/uL (1.0-4.8) Monocytes # (Auto) 0.7 x10^3/uL (0.0-1.1) Eosinophils # (Auto) 0.4 x10^3/uL (0.0-0.7) Basophils # (Auto) 0.0 x10^3/uL (0.0-0.2) Sodium Level 139 mmol/L (136-145) Potassium Level 4.2 mmol/L (3.5-5.1) Chloride Level 104 mmol/L (98-107) Carbon Dioxide Level 25 mmol/L (21-32) Anion Gap 10 (6-14) Blood Urea Nitrogen 15 mg/dL (8-26) Creatinine 0.9 mg/dL (0.7-1.3) Estimated GFR (Cockcroft-Gault) 90.8 Glucose Level 104 mg/dL (70-99) Calcium Level 8.3 mg/dL (8.5-10.1) Magnesium Level 2.1 mg/dL (1.8-2.4) Triglycerides Level 129 mg/dL (0-150) Cholesterol Level 161 mg/dL (0-200) LDL Cholesterol, Calculated 97 mg/dL (0-100) VLDL Cholesterol, Calculated 26 mg/dL (0-40) Non-HDL Cholesterol Calculated 123 mg/dL (0-129) HDL Cholesterol 38 mg/dL (40-60) Cholesterol/HDL Ratio 4.2 Physical Exam HEENT: Neck Supple W Full Motion Chest: Symmetric LUNGS: Clear to Auscultation Heart: S1S2, RRR (SR) Abdomen: Soft N/T Extremities: No Edema, No Calf Tenderness Neurology: alert, oriented, follow commands Assessment Assessment 1. Anterior STEMI: S/P PCI/TRINI to LAD 2. Tobaccoism 3. ICM: EF at 30-35% compensated Recommendations 1. ASA/plavix. Start on toprol and lisinopril low dose. Lasix PRN 2. high dose statin. Consider entresto as outpt 3. Smoking cessation. Cardiac rehab 4. SS consult 5. Follow up with Dr. Manrique on July 24 at 8:45 AM Justicifation of Admission Dx: Justifications for Admission: Justification of Admission Dx: Yes SAMEERA JOHN AUTOMOTIVE WELDER Jun 19, 2021 13:08
[2021-06-19] MEDS ORDERED: FUROSEMIDE 40 MG TABLET. PO PRN (13:15)
[2021-06-19] MEDS: LISINOPRIL 5 MG TABLET. PO SCH (14:00)
[2021-06-19] MEDS: METOPROLOL SUCC 24HR ER 25 MG TAB.ER.24H. PO SCH (14:00)
--- NOTE | 2021-06-19 14:24 | PDOC ---
[facility] PROGRESS NOTE Date of Service DOS: DATE: 06/19/21 TIME: 14:22 Chief Complaint Chief Complaint Typical chest pain consistent with STEMI status post stent to the LAD on 06/18/2021 Ischemic cardiomyopathy with a EF of 30 to 35% History of tobacco abuse Continue aspirin, Plavix Start atorvastatin and metoprolol lisinopril Heparin for DVT prophylaxis Protonix GI prophylaxis ADA diet CODE STATUS full Discussed with RN and SW Disposition inpatient management as above DPOA: History of Present Illness History of Present Illness 45-year-old male with past medical history of hypertension and smoking and early NM in his mother who presents with substernal chest pain for the past 3 hours. Pain does not radiate and associated with diaphoresis and shortness of breath. Never had pain like this before. Paramedics were called and his initial EKG was consistent with NSTEMI. In the anterior leads. Patient was given aspirin and sublingual nitroglycerin which did not help with his pain. Pain currently was 10 out of 10 at the time. Patient was taken to the Photovoltaic Testing Technician and did receive a stent in the LAD which showed a mid occlusion. Patient seen after the Photovoltaic Testing Technician and his pain has improved. There was no other lesion seen on angiogram. June 19, 2021 No acute events overnight. Patient is chest pain-free. No concerns from nursing at this time. Patient's chart, labs, images were reviewed and discussed with RN Vitals/I&O Vitals/I&O: Vital Signs Date Time Temp Pulse Resp B/P (MAP) Pulse Ox O2 Delivery O2 Flow Rate FiO2 06/19/21 11:04 89 17 107/66 (80) 98 Room Air 06/19/21 11:00 98.5 98.5 I & O 06/18/21 06/18/21 06/19/21 15:00 23:00 07:00 Intake Total 500 ml 0 ml Output Total 0 ml 0 ml 0 ml Balance 0 ml 500 ml 0 ml Physical Exam General: Alert, Oriented X3, Cooperative, moderate distress Heart: Regular rate, Other (Regular rhythm) Abdomen: Normal bowel sounds Labs Labs: Laboratory Tests Test 06/18/21 18:00 06/19/21 02:45 Troponin I High Sensitivity 73700 ng/L (4-75) White Blood Count 9.7 x10^3/uL (4.0-11.0) Red Blood Count 4.90 x10^6/uL (4.30-5.70) Hemoglobin 16.7 g/dL (13.0-17.5) Hematocrit 47.7 % (39.0-53.0) Mean Corpuscular Volume 98 fL (79-100) Mean Corpuscular Hemoglobin 34 pg (25-35) Mean Corpuscular Hemoglobin Concent 35 g/dL (31-37) Red Cell Distribution Width 13.8 % (11.5-14.5) Platelet Count 220 x10^3/uL (140-400) Neutrophils (%) (Auto) 70 % (31-73) Lymphocytes (%) (Auto) 18 % (24-48) Monocytes (%) (Auto) 7 % (0-9) Eosinophils (%) (Auto) 4 % (0-3) Basophils (%) (Auto) 0 % (0-3) Neutrophils # (Auto) 6.8 x10^3/uL (1.8-7.7) Lymphocytes # (Auto) 1.7 x10^3/uL (1.0-4.8) Monocytes # (Auto) 0.7 x10^3/uL (0.0-1.1) Eosinophils # (Auto) 0.4 x10^3/uL (0.0-0.7) Basophils # (Auto) 0.0 x10^3/uL (0.0-0.2) Sodium Level 139 mmol/L (136-145) Potassium Level 4.2 mmol/L (3.5-5.1) Chloride Level 104 mmol/L (98-107) Carbon Dioxide Level 25 mmol/L (21-32) Anion Gap 10 (6-14) Blood Urea Nitrogen 15 mg/dL (8-26) Creatinine 0.9 mg/dL (0.7-1.3) Estimated GFR (Cockcroft-Gault) 90.8 Glucose Level 104 mg/dL (70-99) Calcium Level 8.3 mg/dL (8.5-10.1) Magnesium Level 2.1 mg/dL (1.8-2.4) Triglycerides Level 129 mg/dL (0-150) Cholesterol Level 161 mg/dL (0-200) LDL Cholesterol, Calculated 97 mg/dL (0-100) VLDL Cholesterol, Calculated 26 mg/dL (0-40) Non-HDL Cholesterol Calculated 123 mg/dL (0-129) HDL Cholesterol 38 mg/dL (40-60) Cholesterol/HDL Ratio 4.2 Assessment and Plan Assessmemt and Plan Problems Medical Problems: (1) STEMI (ST elevation myocardial infarction) Status: Acute Comment Review of Relevant I have reviewed the following items rosalie (where applicable) has been applied. Medications: Current Medications Medications (Trade) Dose Ordered Sig/Garrett Route PRN Reason Start Time Stop Time Status Last Admin Dose Admin Aspirin (Ecotrin) 325 mg DAILYWBKFT PO 06/19/21 08:00 06/19/21 08:00 Clopidogrel Bisulfate (Plavix) 75 mg DAILYWBKFT PO 06/19/21 08:00 06/19/21 08:00 Morphine Sulfate (Morphine Sulfate) 2 mg PRN Q2HR PRN IVP PAIN 06/18/21 19:15 06/18/21 20:07 Justifications for Admission Other Justification KIKO TAO MD Jun 19, 2021 14:24
[2021-06-19] MEDS ORDERED: CLOP75TA PO (14:28)
[2021-06-19] MEDS ORDERED: METO-239 PO (14:28)
[2021-06-19] MEDS ORDERED: ATOR40TA59 PO (14:28)
[2021-06-19] MEDS ORDERED: ASPI325T11 PO (14:28)
[2021-06-19] MEDS ORDERED: FURO40TA4 PO (14:28)
[2021-06-19] MEDS ORDERED: LISI5TAB15 PO (14:28)
--- NOTE | 2021-06-19 14:29 | DISCH ---
DISCHARGE INSTRUCTIONS Condition on Discharge Condition on Discharge: Stable Activity After Discharge Activity Instructions for Disc: Activity as tolerated Lifting Instructions after Dis: Do not lift >10 pounds Exercise Instruction after Dis: Walk 15 min, 3 x per day Driving Instructions after Dis: Do not drive today Diet after Discharge Diet after Discharge: Cardiac Follow-Up Follow up with: PCP within 2 weeks of discharge Follow Up With: Follow-up with KIKO Pa MD Jun 19, 2021 14:29
--- NOTE | 2021-06-19 16:02 | NUR ---
SS following up with discharge planning. SS reviewed pt chart and discussed with pt RN. Pt is currently on room air. Self pay. Med Assist following. Pt stating that he is eligible for insurance through his work now and is discussing with his employment. Dr. Vides requesting to hold one more night. CVC downgrade. Anticipate discharge to home tomorrow. SS will continue to follow for discharge planning.
[2021-06-19] MEDS ORDERED: ATORVASTATIN CALCIUM 40 MG TABLET. PO SCH (21:00)
[2021-06-20 00:13] VITALS: BP 111/60
[2021-06-20 04:07] VITALS: BP 111/65
[2021-06-20 08:00] VITALS: BP 102/69
[2021-06-20] MEDS: ASPIRIN ENTERIC COATED 325 MG TABLET.DR. PO SCH (08:55)
[2021-06-20] MEDS: LISINOPRIL 5 MG TABLET. PO SCH (08:56)
[2021-06-20] MEDS: CLOPIDOGREL BISULFATE 75 MG TABLET PO SCH (08:56)
[2021-06-20] MEDS: METOPROLOL SUCC 24HR ER 25 MG TAB.ER.24H. PO SCH (08:56)
[2021-06-20 10:00] VITALS: BP 88/59
[2021-06-20 12:00] VITALS: BP 104/66
--- NOTE | 2021-06-20 12:08 | PDOC ---
CARDIO Progress Notes Date and Time Date of Service 06/20/2021 Time of Evaluation 1150 Subjective Subjective: No Chest Pain, No shortness of breath, No Palpitations Vitals Vitals Vital Signs Date Time Temp Pulse Resp B/P (MAP) Pulse Ox O2 Delivery O2 Flow Rate FiO2 06/20/21 10:00 79 18 88/59 (69) 96 Room Air 06/20/21 08:00 98.2 98.2 Weight Weight [ ] Input and Output Intake and Output Intake and Output 06/20/21 07:00 Intake Total 1350 ml Output Total 0 ml Balance 1350 ml Intake Oral 1350 ml Output Urine Total 0 ml # Voids 5 Physical Exam HEENT: Neck Supple W Full Motion Chest: Symmetric LUNGS: Clear to Auscultation Heart: S1S2, RRR (SR) Abdomen: Soft N/T Extremities: No Edema, No Calf Tenderness Neurology: alert, oriented, follow commands Assessment Assessment 1. Anterior STEMI: S/P PCI/TRINI to LAD, stable 2. Tobaccoism 3. ICM: EF at 30-35% compensated Recommendations 1. ASA/plavix. Toprol and lisinopril low dose. Lasix PRN 2. high dose statin. Consider entresto as outpt 3. Smoking cessation. Cardiac rehab. Discussed [facility] and he is declining at this time 4. SS consult 5. Follow up with Dr. Manrique on July 24 at 8:45 AM Justicifation of Admission Dx: Justifications for Admission: Justification of Admission Dx: Yes SAMEERA JOHN APRN Jun 20, 2021 12:08
[2021-06-20 15:00] VITALS: BP 101/70
--- NOTE | 2021-06-20 16:00 | NUR ---
patient left with per w/c to car. discharge inst given with full understanding-cad,chf,pamplet /inst for right groin, given to patient all meds reviewed, importance of follow up with cardiology, and taking meds, cardiac diet reviewed, order placed for cardiac rehab. all questions answered.per Capri Marrufo metoprol 25 instructed patient to take 1/2 tab 12.5 mg as SBP droped to 80 past taking meds this am. patient ambulated in all 3x around with out problem, VS stable
--- NOTE | 2021-06-21 12:22 | PDOC3 ---
[facility]-Discharge Summary Date of Admission: Date of Admission: Jun 18, 2021 Date of Discharge: Date of Discharge: Jun 19, 2021 Discharge Diagnosis: Discharge Diagnosis: Typical chest pain consistent with STEMI status post stent to the LAD on 06/18/2021 Ischemic cardiomyopathy with a EF of 30 to 35% History of tobacco abuse Consults: Consults: Cardiology Assessment 1. Anterior STEMI: S/P PCI/TRINI to LAD, stable 2. Tobaccoism 3. ICM: EF at 30-35% compensated Recommendations 1. ASA/plavix. Toprol and lisinopril low dose. Lasix PRN 2. high dose statin. Consider entresto as outpt 3. Smoking cessation. Cardiac rehab. Discussed [facility] and he is declining at this time 4. SS consult 5. Follow up with Dr. Manrique on July 24 at 8:45 AM Hospital Course: Hospital Course: 45-year-old male with past medical history of hypertension and smoking and early RI in his mother who presents with substernal chest pain for the past 3 hours. Pain does not radiate and associated with diaphoresis and shortness of breath. Never had pain like this before. Paramedics were called and his initial EKG was consistent with NSTEMI. In the anterior leads. Patient was given aspirin and sublingual nitroglycerin which did not help with his pain. Pain currently was 10 out of 10 at the time. Patient was taken to the [facility] Bank Booking Clerk and did receive a stent in the LAD which showed a mid occlusion. Patient seen after the [facility] Booking Clerk and his pain has improved. There was no other lesion seen on angiogram. June 19, 2021 No acute events overnight. Patient is chest pain-free. No concerns from nursing at this time. Patient's chart, labs, images were reviewed and discussed with RN By day of discharge patient was clinically stable and ready to be discharged home. Please see cardiology recommendations above. Patient's chart, labs, images were reviewed and discussed with RN Disposition: Disposition/Orders: D/C to Home Activity: Activity: Resume previous activity Diet: Diet: Cardiac Medications: Home Meds Active Scripts Furosemide (FUROSEMIDE) 40 Mg Tablet, 40 MG PO PRN DAILY PRN for for CHF s/s and wt gain for 30 Days, #30 TAB 2 Refills Prov:KIKO TAO MD 06/19/21 Aspirin (ASPIRIN EC) 325 Mg Tablet., 325 MG PO DAILYWBKFT for secondary prevention for 30 Days, #30 TAB.SR Prov:KIKO TAO MD 06/19/21 Lisinopril (LISINOPRIL) 5 Mg Tablet, 2.5 MG PO DAILY for blood pressure for 30 Days, #15 TAB Prov:KIKO TAO MD 06/19/21 Metoprolol Succinate (METOPROLOL SUCCINATE ( XL )) 25 Mg Tab.er.24h, 25 MG PO DAILY for blood pressure for 30 Days, #30 TAB.SR 2 Refills Prov:KIKO TAO MD 06/19/21 Atorvastatin Calcium (ATORVASTATIN CALCIUM) 40 Mg Tablet, 40 MG PO QHS for heart disease for 30 Days, #30 TAB 2 Refills Prov:KIKO TAO MD 06/19/21 Clopidogrel Bisulfate (CLOPIDOGREL) 75 Mg Tablet, 75 MG PO DAILYWBKFT for heart disease for 30 Days, #30 TAB 2 Refills Prov:KIKO TAO MD 06/19/21 Reported Medications Pantoprazole Sodium (PROTONIX) 20 Mg Tablet., 40 MG PO DAILY for gerd, TAB 06/18/21 Venlafaxine Hcl (VENLAFAXINE HCL ER) 150 Mg Cap.er.24h, 1 CAP PO DAILY for mood disorder, #30 CAP 1 Refill 06/18/21 Discontinued Reported Medications Pantoprazole Sodium (PROTONIX) 20 Mg Tablet., 1 TAB PO DAILY for GERD, #30 TAB 06/18/21 Scheduled Aspirin (Aspirin Ec), 325 MG PO DAILYWBKFT Atorvastatin Calcium (Atorvastatin Calcium), 40 MG PO QHS Clopidogrel Bisulfate (Clopidogrel), 75 MG PO DAILYWBKFT Lisinopril (Lisinopril), 2.5 MG PO DAILY Metoprolol Succinate (Metoprolol Succinate ( Xl )), 25 MG PO DAILY Pantoprazole Sodium (Protonix), 40 MG PO DAILY, (Reported) Venlafaxine Hcl (Venlafaxine Hcl Er), 1 CAP PO DAILY, (Reported) Scheduled PRN Furosemide (Furosemide), 40 MG PO PRN DAILY PRN for for CHF s/s and wt gain Discontinued Medications Pantoprazole Sodium (Protonix), 1 TAB PO DAILY, (Reported) Total Time: Total Time: Total time spent was 32 minutes in preparing scripts, discharge planning with SWI and RN and preparing this discharge summary Patient seen and examined on day of discharge. No acute abnormal findings. Justicifation of Admission Dx: Justifications for Admission: Justification of Admission Dx: Yes KIKO TAO MD Jun 21, 2021 12:22
== END 2021-06-20 15:53 | disposition home or self-care (01) | DRG 247 ==
LOC: EDBD 05:21 → ER 05:21 → ED HOLD 05:43 → 1 WEST ICU 07:19
PROVIDERS: ADMIT Internal Medicine; ATTEND Internal Medicine
PROC: 027034Z Dilation of Coronary Artery, One Artery with Drug-eluting Intraluminal Device, Percutaneous Approach (ICD-10-PCS; principal; 2021-06-18)
PROC: 4A023N7 Measurement of Cardiac Sampling and Pressure, Left Heart, Percutaneous Approach (ICD-10-PCS; 2021-06-18)
PROC: B2111ZZ Fluoroscopy of Multiple Coronary Arteries using Low Osmolar Contrast (ICD-10-PCS; 2021-06-18)
DX: I21.09 ST elevation (STEMI) myocardial infarction involving other coronary artery of anterior wall (principal); E78.5 Hyperlipidemia, unspecified; I10 Essential (primary) hypertension; I25.2 Old myocardial infarction; I25.5 Ischemic cardiomyopathy; Z82.49 Family history of ischemic heart disease and other diseases of the circulatory system; Z98.61 Coronary angioplasty status; F17.210 Nicotine dependence, cigarettes, uncomplicated; Z71.6 Tobacco abuse counseling
CPT/HCPCS: 92941; 93454; 96374; 96375; 99291; G0269; 36415; 80048; 80053; 80061; 83735; 84484; 85025; 93005; 93306; 99152; 99153; 99406; C1725; C1874; C1894; J0583; J1265; J1644; J2250; J2270; J3490; J7030; Q9967; G0378

== ENCOUNTER → 2021-10-08 | Outpatient (CLI) | payer OTHER ==
[~2021-10-08] MED LIST: ASPI325T11 PO; ATOR40TA59 PO; CLOP75TA PO; FURO40TA4 PO; LISI5TAB15 PO; METO-239 PO; PANT20TA2 PO; VENL150C6 PO
--- NOTE | 2021-10-08 15:47 | CARD ---
MR#: [id number] Date of Study: 10/08/2021 Ordering Physician: CORINNA MANRIQUE, Referring Physician: CORNINA MANRIQUE, Tech: Mike Cannon [facility] APPROVED REPORT EXAM: Two-dimensional and M-mode echocardiogram with Doppler and color Doppler. Other Information Quality : FairHR: 71bpm Rhythm : NSR INDICATION Cardiac Disease: CAD RISK FACTORS Hypertension Obesity Hyperlipidemia Smoking 2D DIMENSIONS Left Atrium(2D)3.7 (1.6-4.0cm)IVSd0.9 (0.7-1.1cm) Aortic Root(2D)3.5 (2.0-3.7cm)LVDd5.2 (3.9-5.9cm) LVOT Diameter2.4 (1.8-2.4cm)PWd0.9 (0.7-1.1cm) LA Knejpt60 (18-58mL)LVDs3.6 (2.5-4.0cm) FS (%) 30.2 %SV72.5 ml Aortic Valve AoV Peak Boo.103.9cm/sAoV VTI21.9cm AO Peak GR.4.3mmHgLVOT Peak Boo.76.0cm/s LVOT VTI 16.57cmAO Mean GR.2mmHg ZACKERY (VMAX)2.17vk7KAL (VTI)3.50cm2 Mitral Valve MV E Okoqbkrq30.2cm/sMV DECEL OCAM510yf MV A Fcwmgerl13.4cm/sMV E Mean Gr.1mmHg MV ICK24iyE/A Ratio1.2 MVA (PHT)5.31cm2 TDI E/Lateral E'9.7E/Medial E'9.2 Pulmonary Valve PV Peak Myamhgol84.6cm/sPV Peak Grad.4mmHg Tricuspid Valve TR P. Zcgfkvna433qu/sTR Peak Gr.17mmHg Pulmonary Vein S1 Brqhtujg84.8cm/sD2 Ktvgrhpb37.9cm/s LEFT VENTRICLE The left ventricle is normal size. There is normal left ventricular wall thickness. The left ventricu lar systolic function is mildly decreased. LV ejection fraction is 40 to 45%. There is mild distal se ptal/apical hypokinesis. The left ventricular diastolic function and filling is normal for age. No le ft ventricle thrombus noted on this study. There is no ventricular septal defect visualized. There is no left ventricular aneurysm. There is no mass noted in the left ventricle. RIGHT VENTRICLE The right ventricle is normal size. There is normal right ventricular wall thickness. The right ventr icular systolic function is normal. ATRIA The left atrium size is normal. The right atrium size is normal. The interatrial septum is intact wit h no evidence for an atrial septal defect or patent foramen ovale as noted on 2-D or Doppler imaging. AORTIC VALVE The aortic valve is mildly sclerotic. Doppler and Color Flow revealed no significant aortic regurgita tion. There is no significant aortic valvular stenosis. There is no aortic valvular vegetation. MITRAL VALVE The mitral valve is normal in structure and function. There is no evidence of mitral valve prolapse. There is no mitral valve stenosis. Doppler and Color-flow revealed mild mitral regurgitation. TRICUSPID VALVE The tricuspid valve is normal in structure and function. Doppler and Color Flow revealed trace to mil d tricuspid regurgitation. The PA pressure was estimated at 24 mmHg. There is no tricuspid valve prol apse or vegetation. There is no tricuspid valve stenosis. PULMONIC VALVE The pulmonary valve is normal in structure and function. Doppler and Color Flow revealed no pulmonic valvular regurgitation. There is no pulmonic valvular stenosis. GREAT VESSELS The aortic root is normal in size. The ascending aorta is normal in size. The pulmonary artery is nor mal. The IVC is normal in size and collapses >50% with inspiration. PERICARDIAL EFFUSION There is no pleural effusion. There is no evidence of significant pericardial effusion. Critical Notification Critical Value: No <Conclusion> The left ventricle is normal size. The left ventricular systolic function is mildly decreased. LV ejection fraction is 40 to 45%. There is mild distal septal/apical hypokinesis. Doppler and Color Flow revealed no significant aortic regurgitation. There is no significant aortic valvular stenosis. Doppler and Color-flow revealed mild mitral regurgitation. Doppler and Color Flow revealed trace to mild tricuspid regurgitation. The PA pressure was estimated at 24 mmHg. Signed by : Corinna Manrique MD Electronically Approved : 10/08/2021 15:46:54
== END ==
LOC: ECHO 09:15
PROVIDERS: ATTEND Internal Medicine Cardiovascular Disease
DX: I08.3 Combined rheumatic disorders of mitral, aortic and tricuspid valves (principal); I25.2 Old myocardial infarction
CPT/HCPCS: 93306; C8929

== ENCOUNTER 2021-11-30 10:21 | Outpatient (CLI) | payer OTHER ==
[2021-11-30] VITALS (11 sets, daily range): BP systolic 95–112; BP diastolic 64–79
[~2021-11-30] VITALS: Ht 182.9 cm; Wt 106.8 kg
[2021-11-30] MEDS ORDERED: IODIXANOL 320 MG/ML 100 ML VIAL. ONE (10:26)
[2021-11-30] MEDS ORDERED: LIDOCAINE 1% PF 2 ML VIAL. ONE (10:27)
[2021-11-30] MEDS ORDERED: GABA600T7 PO (10:42)
[2021-11-30 11:01] LABS: HEMATOCRIT 44.7 % (39.0-53.0); HEMOGLOBIN 15.8 g/dL (13.0-17.5); RED BLOOD COUNT 4.9 x10^6/uL (4.30-5.70); RED CELL DISTRIBUTION WIDTH 13.3 % (11.5-14.5); WHITE BLOOD COUNT 5.1 x10^3/uL (4.0-11.0)
[2021-11-30 11:07] LABS: CALCIUM 8.8 mg/dL (8.5-10.1); CREATININE 1.1 mg/dL (0.7-1.3); GFR 71.8; POTASSIUM 4.3 mmol/L (3.5-5.1)
[2021-11-30 11:11] LABS: PROTHROMBIN TIME PATIENT 12.8 SEC (11.7-14.0)
[2021-11-30] MEDS ORDERED: LIDOCAINE 1% PF 2 ML VIAL. INJ ONE (11:15)
[2021-11-30] MEDS ORDERED: NITROGLYCERIN 200 MCG/2 ML SYRINGE FOR CATH/VASC LAB. IART ONE (11:15)
[2021-11-30] MEDS ORDERED: fentaNYL PF VIAL 100 MCG/2 ML VIAL IV ONE (11:15)
[2021-11-30] MEDS ORDERED: IODIXANOL 320 MG/ML 100 ML VIAL. IART ONE (11:15)
[2021-11-30] MEDS ORDERED: MIDAZOLAM HCL/PF 2 MG/2 ML VIAL. IV ONE (11:15)
[2021-11-30] MEDS ORDERED: HEPARIN for IV BOLUS 10,000 UNIT/10 ML VIAL. IART ONE (11:15)
[2021-11-30] MEDS ORDERED: VERAPAMIL 5 MG/2 ML VIAL. IART ONE (11:15)
[2021-11-30] MEDS ORDERED: MIDAZOLAM HCL/PF 2 MG/2 ML VIAL. ONE (11:26)
--- NOTE | 2021-11-30 12:02 | CARD ---
MR#: [id number] Date of Study: 11/30/2021 Ordering Physician: DANIEL ECHAVARRIA, Referring Physician: DANIEL ECHAVARRIA Tech: RT Jyoti(R) APPROVED REPORT Technologist: Yohana Luis RT(R) Nurse: Deana Burciaga RN Procedure(s) performed: Left heart catheterization, selective coronary angiography and left ventricul ography via right transradial approach MODERATE SEDATION TIME: 21 MINUTES FLUORO TIME: 3.4 MIN DOSE: 37 GYCM2 CONTRAST: 69CC VISI INDICATION The indication(s) include : Unstable angina. [facility] Clinical Frailty Scale [facility] Clinical Frailty Scale: Managing Well Heart Failure Heart Failure: No CASE TECHNIQUE IV conscious sedation was used throughout procedure with appropriate monitoring and was performed in the presence of a registered nurse who was an independent trained observer other than the physician p erforming the procedure. During this case, Fluoroscopy and low osmolar contrast were used for imaging . Specimen(s) Removed: No Estimated Blood loss: 15 cc's. PROCEDURE NARRATIVE After explaining the risks, benefits and alternative options, informed consent was obtained from fabienne ent. Patient was brought to the cardiac Tray Drier Operator and right wrist was prepped and draped in the usual fashion after confirming a positive modified Constantino's test. Arterial access was obtained in the righ t radial artery and a 6 Latvian sheath was inserted. 6 [place]ian Laureano catheter was used to perform ramiro ective angiography of the left and right coronary arteries. 6 Latvian pigtail catheter was used to pe rform left ventriculography. Patient tolerated the procedure well. Hemostasis was achieved using TR band. There were no immediate complications. The following findings were noted. FINDINGS 1. Hemodynamics: Left ventricular end-diastolic pressure of 12 mmHg. No pullback gradient across th e aortic valve. 2. Left ventriculography: Normal left ventricle systolic function with ejection fraction estimated at 55%. No significant mitral regurgitation seen. 3. Coronary angiography: a. The left main coronary artery arose from the left sinus of Valsalva, gave rise to the left anteri or descending and left circumflex arteries and did not show any significant stenosis. b. The left anterior descending artery showed widely patent previously placed stent in the midsegmen t. c. The left circumflex artery did not show any significant stenosis. d. The right coronary artery was a large and dominant vessel arising from the right sinus of Valsalv a that did not show any significant stenosis. Conclusion 1. Widely patent previously placed stent in the left anterior descending artery. No significant cor onary artery stenosis. 2. Normal left ventricular systolic function with ejection fraction estimated at 55%. Recommendations Medical Therapy Signed by : Daniel Echavarria, Electronically Approved : 11/30/2021 12:02:17
--- NOTE | 2021-11-30 12:05 | PDOC ---
MODERATE SEDATION ASSESSMENT RISKS/ALTERNATIVES Risks/Alternatives Risks and alternatives of this type of sedation and procedure discussed with: RISK/ALTERNATIVES: Patient H & P ON CHART H & P H & P on chart and reviewed for co-morbid conditions and appropriate labs. H&P ON CHART: Yes STATUS PREG STATUS ASSESSED: N/A MEDS/ALLERGIES REVIEWED Meds/Allergies Reviewed Medications and Allergies including time and route of recently administered narcotics and sedatives. MEDS/ALLERGIES REVIEWED: Yes ASA RATING ASA RATING: II AIRWAY ASSESSMENT Airway Assessment Airway patency, oral function limitations, presence of caps, crowns, dentures, partials, and ability to extend neck assessed. AIRWAY ASSESSMENT: Yes MALLAMPATI SCORE MALLAMPATI SCORE: II PRE-SEDATION ASSESSMENT PRE-SEDATION ASSESSMENT: Yes DANIEL HOWE MD Nov 30, 2021 12:05
--- NOTE | 2021-11-30 14:20 | NUR ---
Discharge Note: ANABEL WALTERS Discharge instructions and discharge home medications reviewed with Patient and a copy given. All questions have been answered and understanding verbalized. Dressing to R wrist dry and intact, armboard in place The following instructions and handouts were given: sedation, radial site care Discontinued lines and drains: Peripheral IV intact. Patient discharged to Home or Self Care with Family Member via Wheelchair DAVID BELL Addendum: 11/30/21 at 1435 by LILY ARIZMENDI RN Amended: Links added.
== END 2021-11-30 14:20 | disposition home or self-care (01) ==
LOC: CCL 10:21
PROVIDERS: ATTEND Internal Medicine Cardiovascular Disease
DX: I20.0 Unstable angina (principal); K21.9 Gastro-esophageal reflux disease without esophagitis; Z87.891 Personal history of nicotine dependence; Z79.82 Long term (current) use of aspirin; Z79.899 Other long term (current) drug therapy; Z98.890 Other specified postprocedural states; Z72.89 Other problems related to lifestyle
CPT/HCPCS: 36415; 80048; 85027; 85610; 93458; 99152; C1769; C1894; J1644; J2250; J3010; J3490; Q9967